=== PATIENT | male | born 1975 | race Caucasian/White ===

== ENCOUNTER 2019-01-21 13:46 | Inpatient (IN) ==
--- NOTE | 2019-01-21 14:22 | Emergency Department Note ---
ED Visit Note I, Dr. Fabby Mireles, PGY3, saw this patient with my attending, Dr. Sparrow, and participated in the care and management of this patient. Resident Activity Tracking Resident Involvement: Resident Care Provided Care Provided: Adult ED : GI bleed Qualifiers: GI bleed type/associated pathology: unspecified gastrointestinal hemorrhage type Qualified Code(s): K92.2 - Gastrointestinal hemorrhage, unspecified
[2019-01-21 15:03] LABS: Prothrombin Time 10.3 Seconds (9.0-12.0)
[2019-01-21 15:11] LABS: Alanine Aminotransferase 37 U/L (12-78); Albumin Level 3.4 gm/dl (3.4-5.0); Aspartate Aminotransferase 16 U/L (15-37); BUN Creatinine Ratio 13.4 (10-20); Blood Urea Nitrogen 12 mg/dl (7-18); Calcium 8.4 mg/dl (8.5-10.1); Carbon Dioxide 30 mmol/L (21-32); Chloride 99 mmol/L (98-107); Creatinine Clr Calc Pharmacy 111.3 ml/min; Est GFR (Non-African American) 100.1; Glucose 98 mg/dl (70-99); Potassium 3.3 mmol/L (3.5-5.1); Sodium 133 mmol/L (136-145)
[2019-01-21 15:12] LABS: Hematocrit (blood only) 19.8 % (42-52); Mean Corpuscular Hgb Conc 35.4 g/dL (32-36); Mean Corpuscular Volume 92.1 fL (80-100); Mean Platelet Volume 9.1 fL (7.4-10.4); Platelet Count 378 K/uL (130-400); RDW Coefficient of Variation 14.5 % (11.5-14.5); Red Blood Count 2.15 M/uL (4.7-6.1); White Blood Count 13.63 K/uL (4.8-10.8)
[2019-01-21 15:16] LABS: Albumin Globulin Ratio 0.9 (0.9-2); Alkaline Phosphatase 44 U/L (45-117); Bilirubin,Total 0.4 mg/dl (0.2-1); Globulin 3.8 gm/dl (2.5-4.0); Total Protein 7.2 gm/dl (6.4-8.2); Troponin I < 0.015 ng/ml (0-0.045)
[2019-01-21 15:19] LABS: Basophils # (auto) 0.03 K/uL (0-0.2); Basophils % (auto) 0.2 %; Eosinophils # (auto) 0.07 K/uL (0-0.5); Eosinophils % (auto) 0.5 %; Immature Granulocytes # (auto) 0.17 K/uL (0.00-0.02); Immature Granulocytes % (auto) 1.2 %; Lymphocytes # (auto) 3.02 K/uL (1.2-3.4); Lymphocytes % (auto) 22.2 %; Monocytes # (auto) 1.52 K/uL (0.11-0.59); Monocytes % (auto) 11.2 %; Neutrophils # (auto) 8.82 K/uL (1.4-6.5); Neutrophils % (auto) 64.7 %
[2019-01-21] MEDS ORDERED: SODIUM CHLORIDE 0.9% 250 ML IV PRN (15:20)
[2019-01-21] MEDS ORDERED: PANTOprazole 80 MG in DEXTROSE 5% 100 ML IV STA (15:35)
[2019-01-21 15:55] LABS: Partial Thromboplastin Ratio 0.8; Partial Thromboplastin Time 21.6 Seconds (21.0-31.0)
--- NOTE | 2019-01-21 17:27 | History & Physical Report ---
Date of Service January 21, 2019 Assessment & Plan (1) History of GI bleed: Patient appears present with acute upper GI bleed with acute blood loss anemia. Patient was ordered transfusion in the emergency department. Patient be placed on Protonix bolus and drip and gastroenterology consult be undertaken. Hemoglobin will be checked posttransfusion somewhere around midnight and then in the morning (2) Psoriasis: Patient typically takes Enbrel which will be held for his psoriasis (3) Lower back pain: Patient takes occasional cyclobenzaprine and this is what the Motrin was for his lower back pain. Once recovered he may consider referral to pain management and also some on opiate pain control perhaps even Ultram (4) Alcohol abuse, daily use: Patient was counseled as daily alcohol use he claims to have stopped for long periods of time without any withdrawal or shakiness. He will appear in Ativan available but will not begin the CIWA protocol at this time unless he develops changes in his vital signs or mental status (5) Encounter for tobacco use cessation counseling: Patient was counseled about stopping the use of his chewing tobacco. I offered him gum or patches here he refused both (6) DVT prophylaxis: SCDs and teds will be DVT prevention History of Present Illness Primary Care Provider: Wisam Parson 43-year-old male who is a daily user of both alcohol and tobacco (chewing tobacco) who also been taking doses of ibuprofen of late whose had a 5-day episode of black bowel movements. Over the weekend which is approximately 4 days ago he became very significantly ill lethargic lightheadedness when he stood up but continued to have melena his girlfriend gave him Zantac and told him to drink plenty of liquids which he felt somewhat better. He presented to [facility] on 01/20 at which time he was told he was anemic and needed a blood transfusion he left AMA presented to our hospital on 01/21 he has persistent anemia with a hemoglobin of 6.9 and continued melena. He is not tachycardic but takes a daily beta-dennis. He was given a transfusion 1 unit packed red blood cells in the ER and started on a Protonix drip at the instruction of [employer] troenterology through [employer] Allergies Allergy/AdvReac Type Severity Reaction Status Date / Time strawberry Allergy Unknown hives Verified 01/21/19 15:49 Home Medications Home Medications Medication Instructions Recorded Confirmed Type cyclobenzaprine 10 mg PO UD PRN 01/21/19 01/21/19 History etanercept [Enbrel] 50 mg SUBCUT WK 01/21/19 01/21/19 History lisinopril 10 mg PO DAILY 01/21/19 01/21/19 History metoprolol ta-hydrochlorothiaz 0.5 tab PO QPM 01/21/19 01/21/19 History metoprolol ta-hydrochlorothiaz 1 tab PO QAM 01/21/19 01/21/19 History Past Med/Surg History Medical History Kidney disease (Chronic) Psoriasis (Chronic) Lower back pain (Acute) Lumbar disc herniation (Acute) History of GI bleed Family History Other Cancer Diabetes Hypertension Social History marital status: Single Current Living Situation: Alone current occupational status: employed Feels Safe at Home: Yes Smoking Status: Former smoker Review of Systems Review of Systems: ROS: well nourished well developed. In mild distress No double vision blurry vision No problems with speech or swallowing No palpitations, chest pain or pressure No Wheezing or breathing issues Diffuse centralized, no abdominal pain nausea vomiting does have black bowel movements No burning urine urine frequency or changes in color Persistent daily back pain without radiation No skin rashes or oral lesions No unusual bruising or bleeding, other than melena No changes in memory or confusion Physical Exam Physical Exam: The patient appeared well nourished and normally developed. Vital signs as documented. Head exam is unremarkable. normocephalic, atraumatic Neck is without jugular venous distension, thyromegaly, or lymphademopathy Lungs are clear to auscultation and percussion. Cardiac exam reveals Rhythm is regular. First and second heart sounds normal. Abdominal exam reveals normal bowel sounds, soft mildly tender in the upper quadrants Extremities are nonedematous and both pedal pulses are present Neurologic exam is A&Ox3, no focal deficits, strength is equal bilateral Psychologically seems neither anxious or depressed Skin is warm Dry without bruises or lesions Results & Data Vital Signs (Past 12 Hours) Vital Signs Temp Pulse Resp BP BP Pulse Ox 01/21/19 17:04 36.8 C 82 19 140/77 100 01/21/19 16:35 18 127/62 98 01/21/19 13:55 37.1 C 82 20 120/80 100 EKG shows sinus rhythm without any acute changes
--- NOTE | 2019-01-21 17:39 | Emergency Department Note ---
Entered by Aileen Weiss acting as a scribe for History of Present Illness General Chief complaint: GI Assessment Stated complaint: BLACK STOOL Time Seen by Provider: 01/21/19 14:19 Source: patient History of Present Illness Onset (ago): week(s) 1 Location: abdomen Severity: similar to prior episodes (GI bleed from Ibuprofen) Pain Consistency: + other (persistent) Maximum Pain Intensity: 0 Quality: + other (melena) Associated symptoms: + denies other symptoms (loss of consciousness, urinary symptoms), + shortness of breath, + weakness and + other (dizziness, lighthea dedness, low hemoglobin, abdominal pain, constipation); no chest pain, no headaches and no nausea/vomiting The patient is a 43 year old male who presents to the Emergency Room with complaints of persistent melena starting one week ago. The patient states that he noticed a week ago that he had dark tarry stools. He states that he normally takes 800 mg of Ibuprofen a night for his back pain. He states that he has had a GI bleed in the past from taking Ibuprofen. He reports that because of this, he immediately stopped taking it. The patient states that yesterday he started feeling dizzy, lightheaded, weak, and short of breath. He states that he tried to regain his strength by walking, but he didnt feel well and had to sit down. He reports that at this time he decided to go to the hospital and went to [facility]. The patient states that while there they found his hemoglobin to be 6.9. He states that they wanted to transfer him to [place] for a transfusion, but he didnt want to go to [place] so he signed out AMA. He reports that he came here because it hasnt gotten better. The patient notes that he was having epigastric pain as well 4 days ago, but after taking Zantac for 2 days, he hasnt had any pain. He notes that since not feeling well he hasnt been swallowing his snuff spit and has been trying to drink more water as he normally never does. He notes that he drinks 6-12 cans of beer a night and doesnt eat more than one meal a day. The patient complains of feeling constipated and took Miralax today with no relief. The patient denies nausea, vomiting, chest pain, headache, recent fall, loss of consciousness, urinary symptoms, and use of blood thinners. Home Medications Home Medications Medication Instructions Recorded Confirmed Type cyclobenzaprine 10 mg PO UD PRN 01/21/19 01/21/19 History etanercept [Enbrel] 50 mg SUBCUT WK 01/21/19 01/21/19 History lisinopril 10 mg PO DAILY 01/21/19 01/21/19 History metoprolol ta-hydrochlorothiaz 0.5 tab PO QPM 01/21/19 01/21/19 History metoprolol ta-hydrochlorothiaz 1 tab PO QAM 01/21/19 01/21/19 History Allergies Allergy/AdvReac Type Severity Reaction Status Date / Time strawberry Allergy Unknown hives Verified 01/21/19 15:49 Past Med/Surg History Family History Other Cancer Diabetes Hypertension Social History marital status: Single Current Living Situation: Alone current occupational status: employed Feels Safe at Home: Yes Smoking Status: Former smoker Review of Systems See HPI for pertinent positives & negatives. and A total of 10 systems reviewed and were otherwise negative Physical Exam Vital Signs Vital Signs - 24 hr 01/21/19 13:55 01/21/19 16:35 01/21/19 17:04 Temperature 37.1 C 36.8 C Temperature Source Oral Oral Sepsis Recent Fever Within 48 Hours No Sepsis Action Taken by Nursing No Action Required Pulse Rate 82 82 Pulse Rhythm Regular Pulse Strength Normal Respiratory Rate 20 18 19 Respiratory Effort / Characteristics Non-Labored Respiratory Depth Normal Normal Blood Pressure 120/80 140/77 Blood Pressure [Left Arm] 127/62 Blood Pressure Mean 93 98 Blood Pressure Mean [Left Arm] 83 Pulse Oximetry 100 98 100 Oxygen Delivery Method Room Air Room Air 01/21/19 17:23 Temperature 37.0 C Temperature Source Oral Sepsis Recent Fever Within 48 Hours Sepsis Action Taken by Nursing Pulse Rate 78 Pulse Rhythm Pulse Strength Respiratory Rate 22 Respiratory Effort / Characteristics Respiratory Depth Blood Pressure 134/89 Blood Pressure [Left Arm] Blood Pressure Mean 104 Blood Pressure Mean [Left Arm] Pulse Oximetry 100 Oxygen Delivery Method GENERAL: Awake, alert, in no distress HENT: Normocephalic, atraumatic. Oropharynx unremarkable. EYES: Normal conjunctiva. Sclera non-icteric but pale. NECK: Supple. No nuchal rigidity. RESPIRATORY: Clear to auscultation. No wheezes. Normal respiratory effort. CARDIAC: Normal rate. Normal rhythm. Extremities warm and well perfused. GI: Soft, non-distended. No tenderness to palpation. No rebound or guarding. No masses. RECTAL: Tarry, hemocult positive stools. MUSCULOSKELETAL: Atraumatic. Chest examination reveals no tenderness. LOWER EXTREMITIES: Calves are equal size bilaterally and non-tender. No edema NEURO: Normal sensorium. No sensory or motor deficits noted. No facial droop. SKIN: Pale. Warm and dry. No rash or jaundice noted. Course 1428: The resident, Dr. Fabby Mireles, performed her initial evaluation, history, and physical at this time. 1509: The patient was evaluated in room B2. A complete history and physical exam was performed. 1538: I reevaluated the patient and updated him on his test results. I discussed the treatment plan with him. He verbally agrees and understands. He signed the consent for blood at this time. 1544: I discussed the patient's case with Dr. Óscar FLETCHER Hospitalist. He will evaluate the patient for further management. 1634: Dr. Fabby Mireles, the resident, spoke to JESUS Krishnamurthy. They are aware of the patient. Consultations Consultation #1: I discussed the patient's case with Dr. Óscar FLETCHER Hospitalist. He will evaluate the patient for further management. Time: 15:44 Consultation #2: Dr. Fabby Mireles, the resident, spoke to MARIA TERESA Krishnamurthy. They are aware of the patient. Time: 16:34 Administered Medications Discontinued Medications Pantoprazole Sodium 80 mg/ (Dextrose) 120 mls @ 480 mls/hr IV NOW STA Stop: 01/21/19 15:49 Last Admin: 01/21/19 16:07 Dose: 480 mls/hr Documented by: [id number] Medical Decision Making Differential Diagnosis Differential diagnosis: Etiologies such as esophagitis, variceal bleed, [place], [place] tear, gastritis, peptic ulcer disease, AVM, inflammatory bowel disease, ischemia, diverticulosis, colitis, malignancy, coagulopathy, thrombocytopenia, fissure, hemorrhoid, epistaxis , as well as others were entertained. Medical Records Attestation: I reviewed the patient's medical records. Home Medications Current Medication List: was personally reviewed by me Laboratory Data Attestation: I reviewed the patient's lab results. Result diagrams: 01/21/19 14:43 01/21/19 14:43 Lab Results 01/21/19 01/21/19 01/21/19 Range/Units 14:42 14:43 14:43 WBC 13.63 H (4.8-10.8) K/uL RBC 2.15 L (4.7-6.1) M/uL Hgb 7.0 L (14.0-18.0) g/dL Hct 19.8 L* (42-52) % MCV 92.1 (80-100) fL MCH 32.6 (25-34) pg MCHC 35.4 (32-36) g/dL RDW Std Deviation 44.0 (36.4-46.3) fL RDW Coeff of Sonia 14.5 (11.5-14.5) % Plt Count 378 (130-400) K/uL MPV 9.1 (7.4-10.4) fL Immature Gran % (Auto) 1.2 % Neut % (Auto) 64.7 % Lymph % (Auto) 22.2 % [place] % (Auto) 11.2 % Eos % (Auto) 0.5 % Baso % (Auto) 0.2 % Immature Gran # (Auto) 0.17 H (0.00-0.02) K/uL Neut # (Auto) 8.82 H (1.4-6.5) K/uL Lymph # (Auto) 3.02 (1.2-3.4) K/uL [place] # (Auto) 1.52 H (0.11-0.59) K/uL Eos # (Auto) 0.07 (0-0.5) K/uL Baso # (Auto) 0.03 (0-0.2) K/uL PT 10.3 (9.0-12.0) Seconds INR 1.0 (0.9-1.1) APTT (21.0-31.0) Seconds PTT Ratio Sodium (136-145) mmol/L Potassium (3.5-5.1) mmol/L Chloride (98-107) mmol/L Carbon Dioxide (21-32) mmol/L Anion Gap (3-11) BUN (7-18) mg/dl Creatinine (0.6-1.4) mg/dl Est Cr Clr Drug Dosing ml/min Est GFR ( Amer) Est GFR (Non-Af Amer) BUN/Creatinine Ratio (10-20) Glucose (70-99) mg/dl Calcium (8.5-10.1) mg/dl Total Bilirubin (0.2-1) mg/dl AST (15-37) U/L ALT (12-78) U/L Alkaline Phosphatase (45-117) U/L Troponin I (0-0.045) ng/ml Total Protein (6.4-8.2) gm/dl Albumin (3.4-5.0) gm/dl Globulin (2.5-4.0) gm/dl Albumin/Globulin Ratio (0.9-2) Lipase (73-393) U/L Blood Type A Positive Blood Type Recheck Antibody Screen NEGATIVE Crossmatch See Detail 01/21/19 01/21/19 01/21/19 Range/Units 14:43 14:43 14:44 WBC (4.8-10.8) K/uL RBC (4.7-6.1) M/uL Hgb (14.0-18.0) g/dL Hct (42-52) % MCV (80-100) fL MCH (25-34) pg MCHC (32-36) g/dL RDW Std Deviation (36.4-46.3) fL RDW Coeff of Sonia (11.5-14.5) % Plt Count (130-400) K/uL MPV (7.4-10.4) fL Immature Gran % (Auto) % Neut % (Auto) % Lymph % (Auto) % [place] % (Auto) % Eos % (Auto) % Baso % (Auto) % Immature Gran # (Auto) (0.00-0.02) K/uL Neut # (Auto) (1.4-6.5) K/uL Lymph # (Auto) (1.2-3.4) K/uL [place] # (Auto) (0.11-0.59) K/uL Eos # (Auto) (0-0.5) K/uL Baso # (Auto) (0-0.2) K/uL PT (9.0-12.0) Seconds INR (0.9-1.1) APTT 21.6 (21.0-31.0) Seconds PTT Ratio 0.8 Sodium 133 L (136-145) mmol/L Potassium 3.3 L (3.5-5.1) mmol/L Chloride 99 (98-107) mmol/L Carbon Dioxide 30 (21-32) mmol/L Anion Gap 4.0 (3-11) BUN 12 (7-18) mg/dl Creatinine 0.92 (0.6-1.4) mg/dl Est Cr Clr Drug Dosing 111.3 ml/min Est GFR ( Amer) 116.0 Est GFR (Non-Af Amer) 100.1 BUN/Creatinine Ratio 13.4 (10-20) Glucose 98 (70-99) mg/dl Calcium 8.4 L (8.5-10.1) mg/dl Total Bilirubin 0.4 (0.2-1) mg/dl AST 16 (15-37) U/L ALT 37 (12-78) U/L Alkaline Phosphatase 44 L (45-117) U/L Troponin I < 0.015 Cancelled (0-0.045) ng/ml Total Protein 7.2 (6.4-8.2) gm/dl Albumin 3.4 (3.4-5.0) gm/dl Globulin 3.8 (2.5-4.0) gm/dl Albumin/Globulin Ratio 0.9 (0.9-2) Lipase 311 (73-393) U/L Blood Type Blood Type Recheck Antibody Screen Crossmatch 01/21/19 Range/Units 15:44 WBC (4.8-10.8) K/uL RBC (4.7-6.1) M/uL Hgb (14.0-18.0) g/dL Hct (42-52) % MCV (80-100) fL MCH (25-34) pg MCHC (32-36) g/dL RDW Std Deviation (36.4-46.3) fL RDW Coeff of Sonia (11.5-14.5) % Plt Count (130-400) K/uL MPV (7.4-10.4) fL Immature Gran % (Auto) % Neut % (Auto) % Lymph % (Auto) % [place] % (Auto) % Eos % (Auto) % Baso % (Auto) % Immature Gran # (Auto) (0.00-0.02) K/uL Neut # (Auto) (1.4-6.5) K/uL Lymph # (Auto) (1.2-3.4) K/uL [place] # (Auto) (0.11-0.59) K/uL Eos # (Auto) (0-0.5) K/uL Baso # (Auto) (0-0.2) K/uL PT (9.0-12.0) Seconds INR (0.9-1.1) APTT (21.0-31.0) Seconds PTT Ratio Sodium (136-145) mmol/L Potassium (3.5-5.1) mmol/L Chloride (98-107) mmol/L Carbon Dioxide (21-32) mmol/L Anion Gap (3-11) BUN (7-18) mg/dl Creatinine (0.6-1.4) mg/dl Est Cr Clr Drug Dosing ml/min Est GFR ( Amer) Est GFR (Non-Af Amer) BUN/Creatinine Ratio (10-20) Glucose (70-99) mg/dl Calcium (8.5-10.1) mg/dl Total Bilirubin (0.2-1) mg/dl AST (15-37) U/L ALT (12-78) U/L Alkaline Phosphatase (45-117) U/L Troponin I (0-0.045) ng/ml Total Protein (6.4-8.2) gm/dl Albumin (3.4-5.0) gm/dl Globulin (2.5-4.0) gm/dl Albumin/Globulin Ratio (0.9-2) Lipase (73-393) U/L Blood Type Blood Type Recheck A Positive Antibody Screen Crossmatch ECG Data Attestation: I personally reviewed and interpreted this ECG as follows: Indication: SOB/dyspnea Rate (beats per minute): 85 Rhythm: normal sinus Findings: + nonspecific-ST abn; no ST depression and no ST elevation Blood Pressure Blood Pressure Findings: Normal blood pressure Blood Pressure Disposition: did not require urgent referral MDM Narrative 43-year-old gentleman history of prior GI bleed with tobacco use states taking increased Motrin over the past month start nose black tarry stools a week ago. Patient states that he started feel a bit weak and dizzy and had little bit epigastric discomfort over the last several days. Seen at outside facility yesterday diagnosed with anemia but refused transfer for transfusion. Upon arrival here not acutely tachycardic or hypotensive. Not on anticoagulants or blood thinners. Abdomen is benign without significant tenderness I doubt any perforation. Does not seem acutely consistent with diverticulitis given this. Given Protonix. Given the significant anemia noted I discussion with the patient regarding transfusion. Patient agreed to transfusion but had some concerns about staying in the hospital. I discussed with him the serious nature of his condition. Patient states he has activities on Friday he wants to go to. Discussed with him that leaving would risk of or injury including serious GI bleed, organ dysfunction or others. I have concerns about possible gastric ulceration. He was agreeable to stay given this. Patient again is not acutely tachycardic but on a beta-dennis. Ordered 1 unit of blood from transfusion. Discussed with the hospitalist. The on-call lube attendant was contacted as well recommend Protonix bolus and drip as well as n.p.o. stat us. Impression & Plan GI bleed, Acute blood loss anemia Critical Care Time I have personally spent 35 minutes of critical care time in the direct management of this patient. This includes bedside care, interpretation of diagnostic studies, and testing, discussion with consultants, patient, and family members, and other required patient management activities. This 35 minutes is in excess of all separately billable procedures. Critical Care Time: Yes Total Critical Care Time: 35 Discharge Plan Visit Data Chief Complaint: GI Assessment Stated Complaint: BLACK STOOL ED Provider: Ben Sparrow ED Midlevel Provider: Fabby Mireles Discharge Problem: GI bleed, Acute blood loss anemia Patient Disposition: Being Evaluated by Hospitalist Forms Stand Alone Forms: [employer] Prescriptions Prescriptions: No Action cyclobenzaprine 10 mg Tablet 10 mg PO UD PRN (Reason: Muscle Pain) RF: 0 metoprolol ta-hydrochlorothiaz 100-25 mg tablet 1 tab PO QAM RF: 0 metoprolol ta-hydrochlorothiaz 100-25 mg tablet 0.5 tab PO QPM RF: 0 lisinopril 10 mg tablet 10 mg PO DAILY RF: 0 Enbrel 50 mg/mL (0.98 mL) syringe 50 mg subcut WK RF: 0 Referrals Referrals: Wisam Parson [Primary Care Provider] - Discharge Problem: GI bleed Qualifiers: GI bleed type/associated pathology: unspecified gastrointestinal hemorrhage type Qualified Code(s): K92.2 - Gastrointestinal hemorrhage, unspecified The scribe's documentation has been prepared under my direction and personally reviewed by me in its entirety. I confirm that the note above accurately reflects all work, treatment, procedures, and medical decision making performed by me.
[2019-01-21] MEDS ORDERED: CONSULT PHARMACY STA (18:04)
[2019-01-21] MEDS ORDERED: ONDANSETRON INJ 2 MG/ML 2 ML VIAL IV PRN (18:04)
[2019-01-21] MEDS ORDERED: ACETAMINOPHEN 325 MG TAB PO PRN (18:04)
[2019-01-21] MEDS ORDERED: MoRPHine SULFATE 2 MG/ML CARP IV PRN (18:04)
[2019-01-21] MEDS ORDERED: LORazepam 0.5 MG/1 ML VIAL IV PRN (18:04)
[2019-01-21] MEDS: NSS + 20MEQ KCL 20 MEQ/1,000 ML BAG IV SCH (19:44)
[2019-01-21] MEDS: PANTOprazole 40 MG in DEXTROSE 5% 100 ML IV SCH (19:46)
[2019-01-21] MEDS: METOPROLOL TARTRATE 50 MG TAB PO SCH (20:47)
[2019-01-21 21:06] LABS: Appearance Urine Clear (Clear); Bilirubin Urine Negative (Negative); Blood Urine Negative (Negative); Color Urine Yellow; Glucose Urine UA Negative (Negative); Ketones Urine Negative (Negative); Leukocyte Esterase Urine Negative (Negative); Nitrite Urine Negative (Negative); Protein Urine Negative (Negative); Specific Gravity Urine 1.009 (1.000-1.030); Urobilinogen Urine Negative (Negative)
[2019-01-22] MEDS: PANTOprazole 40 MG in DEXTROSE 5% 100 ML IV SCH ×2 (00:19→05:24)
[2019-01-22] MEDS ORDERED: BISACODYL 10 MG SUPP PR PRN (05:18)
[2019-01-22] MEDS ORDERED: SOD PHOSPHATE/SOD BIPHOSPHATE ENEMA 132 ML BTL PR PRN (05:19)
[2019-01-22] MEDS: NSS + 20MEQ KCL 20 MEQ/1,000 ML BAG IV SCH (05:26)
[2019-01-22] MEDS: METOPROLOL TARTRATE 50 MG TAB PO SCH (07:42)
[2019-01-22 07:43] LABS: Hematocrit (blood only) 22.8 % (42-52); Mean Corpuscular Hgb Conc 35.1 g/dL (32-36); Mean Corpuscular Volume 92.7 fL (80-100); Mean Platelet Volume 9.4 fL (7.4-10.4); Platelet Count 360 K/uL (130-400); RDW Coefficient of Variation 14.6 % (11.5-14.5); RDW Standard Deviation 46.3 fL (36.4-46.3); Red Blood Count 2.46 M/uL (4.7-6.1); White Blood Count 9.46 K/uL (4.8-10.8)
[2019-01-22 08:15] LABS: BUN Creatinine Ratio 9.6 (10-20); Calcium 8.6 mg/dl (8.5-10.1); Creatinine Clr Calc Pharmacy 117.7 ml/min; Est GFR (African American) 120.8; Est GFR (Non-African American) 104.2; Potassium 3.6 mmol/L (3.5-5.1)
--- NOTE | 2019-01-22 16:47 | Discharge Summary ---
Date of Service January 22, 2019 Admission HPI Per Admitting Provider 43-year-old male who is a daily user of both alcohol and tobacco (chewing tobacco) who also been taking doses of ibuprofen of late whose had a 5-day episode of black bowel movements. Over the weekend which is approximately 4 days ago he became very significantly ill lethargic lightheadedness when he stood up but continued to have melena his girlfriend gave him Zantac and told him to drink plenty of liquids which he felt somewhat better. He presented to [facility] on 01/20 at which time he was told he was anemic and needed a blood transfusion he left AMA presented to our hospital on 01/21 he has persistent anemia with a hemoglobin of 6.9 and continued melena. He is not tachycardic but takes a daily beta-dennis. He was given a transfusion 1 unit packed red blood cells in the ER and started on a Protonix drip at the instruction of gastroenterology through [facility] Principal Diagnosis GI bleeding Discharge Exam Constitutional WD/WN, vitals as above Eyes EOM intact bilaterally; no conjunctival abnormality ENMT external ear and nose normal, oropharynx normal Neck trachea midline, no thyromegaly normal visual inspection Respiratory normal respiratory effort, lungs clear to auscultation no respiratory distress Cardiovascular RRR, no murmur, no edema Gastrointestinal (Abdomen) Inspection/Auscultation: abdomen normal to inspection; abdomen not distended Musculoskeletal no cyanosis or clubbing, extremities motor strength 5/5 Skin no rashes, warm and dry Neurologic moves all extremities and awake Psychiatric Orientation: alert, oriented to person and cooperative Discharge Data Allergies Allergy/AdvReac Type Severity Reaction Status Date / Time strawberry Allergy Unknown hives Verified 01/21/19 15:49 Consultations 01/21/19 15:45 ED Decision to Admit Stat 01/21/19 18:04 Consult Case Management - Discharge Planning Routine Consult Gastroenterology Routine Procedures Performed Operation Date: 01/22/19 10:40 <No data on this case meets the specified criteria> Hospital Course (1) History of GI bleed: Patient appears present with acute upper GI bleed with acute blood loss anemia. Patient was ordered transfusion in the emergency department. Patient be placed on Protonix bolus and drip and gastroenterology consult be undertaken. Hemoglobin will be checked posttransfusion somewhere around midnight and then in the morning Patient left AMA the morning of 01/22 because he felt better. We discussed risks of leaving without seeing GI or getting an EGD, but he reported he felt well and could tell he was no longer bleeding. I did prescribe a BID PPI and counseled him on NSAID use and avoiding alcohol. (2) Psoriasis: Patient typically takes Enbrel which will be held for his psoriasis (3) Lower back pain: Patient takes occasional cyclobenzaprine and this is what the Motrin was for his lower back pain. Once recovered he may consider referral to pain management and also some on opiate pain control perhaps even Ultram (4) Alcohol abuse, daily use: Patient was counseled as daily alcohol use he claims to have stopped for long periods of time without any withdrawal or shakiness. He will appear in Ativan available but will not begin the CIWA protocol at this time unless he develops changes in his vital signs or mental status (5) Encounter for tobacco use cessation counseling: Patient was counseled about stopping the use of his chewing tobacco. I offered him gum or patches here he refused both (6) DVT prophylaxis: SCDs and teds will be DVT prevention Total Time Total Time Spent Total Time Spent (In Minutes): 35 Discharge Plan Discharge Items Patient Disposition: Home - Self-Care Reason For Visit: GI BLEED Discharge Diagnosis: GI bleed, likely from stomach ulcer Condition: Fair Discharge Goals: Decrease discomfort and Diagnostic testing Activity: Resume your previous activity Non-emergency contact: Primary Care Provider and Senior Research Scientist Call non-emergency contact if: your symptoms worsen, your pain is not controlled and your temperature is above 100.5 Follow-up/Referrals: Wisam Parson [Primary Care Provider] - Diet: Regular Addtl Provider Instructions: Mr. Bueno, You were discharged from the hospital after getting blood for a likely GI bleed. We would have liked you to see the GI doctors and possibly have a scope (EGD) of the stomach; however, you felt better and decided to pursue your care as an outpatient. Because we can't be sure you are not still bleeding, you are leaving against medical advice. Please be advised that you may have complications such as further bleeding, loss of consciousness, and could even have a chance of dying from further bleeding. We are precribing you a stomach acid blocking medication called pantoprazole to take 2 times per day. Please do not take any more ibuprofen, naproxen, Aleve, Motrin, or other "NSAID" medications. Tylenol is safe to take for your back pain within the recommended doses on the bottle. Do not drink any alcohol as this can also upset the lining of your stomach. You can take an iron supplement every other day to help improve your iron stores, and eat an iron-rich diet with red meat and spinach. Please see your PCP as soon as you are able and try to get an appointment with a GI doctor as soon as you are able. Please return to the hospital or call if you have lightheadedness, dizziness, fainting, black/tarry stools, or other concerning symptoms. Prescriptions: New pantoprazole 40 mg tablet,delayed release (DR/EC) 40 mg PO BID Qty: 60 RF: 0 ferrous sulfate [iron] 325 mg (65 mg iron) tablet 325 mg PO Q OTHER DAY Qty: 30 RF: 0 Continued cyclobenzaprine 10 mg Tablet 10 mg PO UD PRN (Reason: Muscle Pain) RF: 0 metoprolol ta-hydrochlorothiaz 100-25 mg tablet 1 tab PO QAM RF: 0 metoprolol ta-hydrochlorothiaz 100-25 mg tablet 0.5 tab PO QPM RF: 0 lisinopril 10 mg tablet 10 mg PO DAILY RF: 0 Enbrel 50 mg/mL (0.98 mL) syringe 50 mg subcut WK RF: 0 Stand-Alone Forms: Work/School Release (Inpt) Discharge Orders: Discharge Order (Routine); Ordered 01/22/19 Ordered By: Michael Hawthorne Admission Data Admit Date/Time: 01/21/19 17:21 Attending Provider: Michael Hawthorne Admit Provider: Zay Gutierrez Primary Care Provider: Wisam Parson Other Providers: Anton Eastman Weldon J. Service: Telemetry Medical Other Interventions: Discharge Summary Assessment (RN) Last Done: 01/22/19 09:16 DC Date/Time DO NOT enter until pt leaves facility: 01/22/19 09:23
== END 2019-01-22 09:23 | disposition left against medical advice (07) | DRG 378 ==
LOC: ED 13:46 → SUATTDRO 17:21 → 2W 17:21